=== PATIENT | female | born 1955 | race African-American/Black ===

== ENCOUNTER 2017-07-09 23:43 | Emergency (ER) | payer OTHER ==
[~2017-07-09] VITALS: Ht 167.6 cm; Wt 72.0 kg
[~2017-07-09 23:43] MED LIST: INSLAN SQ; PIOG15TA6 PO; VALS320T2 PO
[2017-07-09] MEDS ORDERED: GABA-533 PO (23:49)
[2017-07-09 23:58] LABS: GLUCOSE,POINT OF CARE 129 MG/DL (70-110)
[2017-07-10 02:00] VITALS: BP 148/88
== END 2017-07-10 03:02 | disposition home or self-care (01) ==
LOC: EMS 23:44
DX: T16.1XXA Foreign body in right ear, initial encounter (principal); E11.9 Type 2 diabetes mellitus without complications; I10 Essential (primary) hypertension; F17.210 Nicotine dependence, cigarettes, uncomplicated; Z79.4 Long term (current) use of insulin
CPT/HCPCS: 69200; 82962; 99284